=== PATIENT | female | born 1970 | race Caucasian/White ===

== ENCOUNTER → 2017-08-13 | Outpatient (CLI) | payer OTHER, BC ==
[~2017-08-13] MED LIST: DEPO-MEDROL80 MG/ML IM; LEVOTHYROXINE125 MCG PO; NAPROXEN500 MG PO; NEXIUM40 MG PO; VITAMIN B-122000 MC1 PO; VITAMIN D2000 UNIT PO
== END | disposition home or self-care (01) ==
LOC: CDC 14:00
DX: Z01.810 Encounter for preprocedural cardiovascular examination (principal); M25.511 Pain in right shoulder; M75.41 Impingement syndrome of right shoulder; M19.011 Primary osteoarthritis, right shoulder; R94.31 Abnormal electrocardiogram [ECG] [EKG]
CPT/HCPCS: 93000

== ENCOUNTER 2017-08-20 10:25 | Day surgery (SDC) | payer OTHER, BC ==
[~2017-08-20] VITALS: Ht 175.3 cm; Wt 113.0 kg
[2017-08-20 11:25] VITALS: BP 126/78
[2017-08-20 17:10] VITALS: BP 111/59
[2017-08-20 18:09] VITALS: BP 121/56
== END 2017-08-20 18:10 | disposition home or self-care (01) ==
LOC: SDC
PROVIDERS: Orthopaedic Surgery
DX: M25.811 Other specified joint disorders, right shoulder (principal); M75.41 Impingement syndrome of right shoulder; M19.011 Primary osteoarthritis, right shoulder; K21.9 Gastro-esophageal reflux disease without esophagitis; E03.9 Hypothyroidism, unspecified; V79.3XXA Bus occupant (driver) (passenger) injured in unspecified nontraffic accident, initial encounter; Y92.410 Unspecified street and highway as the place of occurrence of the external cause; Y99.0 Civilian activity done for income or pay; F17.200 Nicotine dependence, unspecified, uncomplicated; Z88.0 Allergy status to penicillin
CPT/HCPCS: 81025; C1713; J0171; J0330; J0690; J1100; J1170; J2250; J2405; J2795; Q0175; S0020